=== PATIENT | female | born 1950 | race Caucasian/White ===

== ENCOUNTER → 2016-04-24 | Outpatient (REF) | payer MEDICARE, OTHER ==
[2016-04-24 11:20] LABS: BASOPHILS % (AUTO) 0 % (0-2); EOSINOPHILS # (AUTO) 0.2 10^3uL; EOSINOPHILS % (AUTO) 3 % (0-4); LYMPHOCYTES # (AUTO) 1.6 X10^3; MEAN CORPUSCULAR HEMOGLOBIN 28.8 PG (26.0-34.0); MEAN CORPUSCULAR HGB CONC 32.3 g/dL (31.0-37.0); MEAN CORPUSCULAR VOLUME 89 FL (80-100); MEAN PLATELET VOLUME 9.8 FL (6.0-9.5); MONOCYTES # (AUTO) 0.6 X10^3; MONOCYTES % (AUTO) 9 % (3-11); NEUTROPHILS # (AUTO) 4.3 X10^3; NEUTROPHILS % (AUTO) 64 % (51-67); PLATELET COUNT 267 10^3uL (150-450); WHITE BLOOD COUNT 6.67 10^3uL (4.0-11.0)
[2016-04-24 11:42] LABS: ALBUMIN 4.1 g/dL (3.4-5.0); ANION GAP 14.6 MEQ/L (3-15); CALCULATED IONIZED CALCIUM 4.1 mg/dL (3.8-4.6)
== END ==
LOC: LAB 10:26
PROVIDERS: ATTEND Family Medicine
DX: I50.32 Chronic diastolic (congestive) heart failure (principal); I25.84 Coronary atherosclerosis due to calcified coronary lesion; E03.4 Atrophy of thyroid (acquired)
CPT/HCPCS: 80053; 80061; 84443; 85025

== ENCOUNTER → 2016-06-10 | Outpatient (REF) | payer MEDICARE, OTHER | LOC: LAB 11:15 | PROVIDERS: ATTEND Family Medicine | DX: E03.8 Other specified hypothyroidism (principal); I50.32 Chronic diastolic (congestive) heart failure | CPT/HCPCS: 80048; 84443 ==